=== PATIENT | male | born 1965 | race Caucasian/White ===

== ENCOUNTER 2020-09-30 07:08 | Emergency (ER) | payer OTHER ==
[~2020-09-30] VITALS: Ht 165.1 cm; Wt 63.5 kg
[2020-09-30] MEDS ORDERED: AMOX-CLAV 875-1 EACH PO (08:53)
[2020-09-30] MEDS ORDERED: MUPIROCIN1 G1 TOP (08:53)
[2020-09-30] MEDS ORDERED: KETO10TA2 PO (08:53)
[2020-09-30] MEDS ORDERED: TYLENOL325 MG PO (09:05)
== END 2020-09-30 09:47 | disposition home or self-care (01) ==
LOC: ER 07:08
DX: S80.272A Other superficial bite of left knee, initial encounter (principal); W54.0XXA Bitten by dog, initial encounter; Y93.89 Activity, other specified; Y92.89 Other specified places as the place of occurrence of the external cause; Y99.8 Other external cause status

== ENCOUNTER 2023-01-11 06:28 | Emergency (ER) | payer OTHER ==
[~2023-01-11] VITALS: Ht 165.1 cm; Wt 65.8 kg
[~2023-01-11 06:28] MED LIST: AMOX-CLAV 875-1 EACH PO; KETO10TA2 PO; MUPIROCIN1 G1 TOP; TYLENOL325 MG PO
[2023-01-11 08:34] LABS: HEMATOCRIT 42.9 % (39.0-48.0); HEMOGLOBIN 14.9 g/dL (13-16.00); MEAN CELL VOLUME 84.9 fL (80.0-100.00); MEAN CORPUSCULAR HEMOGLOBIN 29.5 pg (27.00-32.0); MEAN CORPUSCULAR HGB CONC 34.8 g/dl (32.0-36.0); PLATELET COUNT 243 K/uL (150-450); RED BLOOD COUNT 5.06 M/uL (4.00-6.00); RED CELL DISTRIBUTION WIDTH 13.5 % (11.5-14.5)
[2023-01-11 09:20] LABS: INR 0.98; PARTIAL THROMBOPLASTIN TIME 29.2 SECONDS (22.0-34.0); PROTHROMBIN TIME 10.3 SECONDS (9.0-11.5)
[2023-01-11 09:32] LABS: URINE APPEARANCE Clear; URINE BILIRRUBIN Negative (NEGATIVE); URINE BLOOD Negative; URINE COLOR Yellow; URINE GLUCOSE Negative (NEGATIVE); URINE LEUKOCYTE Negative; URINE NITRATE Negative; URINE PROTEIN Negative (NEGATIVE); URINE UROBILINOGEN 0.2 E.U./dl
[2023-01-11 09:33] LABS: URINE WBC 3.7 uL (0.0-23.2)
[2023-01-11 09:37] LABS: URINE BACTERIA 3.7 uL (0.0-1933); URINE EPITHELIAL CELLS 1.3 uL (0.0-38.8); URINE RBC 1.5 uL (0.0-20.8)
[2023-01-11 09:41] LABS: ALBUMIN 3.8 gm/dL (3.4-5.0); BILIRUBIN TOTAL 0.52 mg/dL (0.3-1.2); CALCIUM 9.3 mg/dL (8.5-10.1); CREATININE SERUM 0.88 mg/dL (0.70-1.30); GFR 89.91; GLOBULINA 3.7 G/DL (2.4-3.5); POTASSIUM 4.19 mEq/L (3.5-5.1); TOTAL PROTEIN 7.5 gm/dL (6.4-8.2)
== END 2023-01-11 15:47 | disposition home or self-care (01) ==
LOC: ER 06:28
PROVIDERS: General Practice
DX: K57.32 Diverticulitis of large intestine without perforation or abscess without bleeding (principal)